=== PATIENT | male | born 1970 | race Caucasian/White ===

== ENCOUNTER 2021-02-09 14:42 | Emergency (ER) | payer OTHER ==
[~2021-02-09] VITALS: Ht 160 cm; Wt 101.8 kg
[2021-02-09 14:52] VITALS: TEMP 99.2
[2021-02-09] MEDS ORDERED: PERCOCET 325 MG1 TA2 PO (17:16)
[2021-02-09] MEDS ORDERED: MOTRIN 800800 MG/TAB PO (17:16)
[2021-02-09 17:22] VITALS: BP 155/80; PULSE 103
== END 2021-02-09 17:23 | disposition home or self-care (01) ==
LOC: COL.ER 14:42
DX: T22.111A Burn of first degree of right forearm, initial encounter (principal); S16.1XXA Strain of muscle, fascia and tendon at neck level, initial encounter; X17.XXXA Contact with hot engines, machinery and tools, initial encounter; V49.9XXA Car occupant (driver) (passenger) injured in unspecified traffic accident, initial encounter